=== PATIENT | male | born 1950 | race Caucasian/White ===

== ENCOUNTER 2024-09-29 08:37 | Inpatient (IN) | payer MEDICAID, OTHER ==
[~2024-09-29] VITALS: Ht 170.2 cm; Wt 77.2 kg
[2024-09-29] MEDS: VANCOMYCIN 1000MG/250ML 250 ML IV SCH (09:30)
[2024-09-29 09:35] LABS: DIFFERENTIAL COMMENT 1; HEMATOCRIT. 36.3 % (42.0-52.0); MEAN CORPUSCULAR HEMOGLOBIN 30.7 pg (28.0-32.0); MEAN CORPUSCULAR VOLUME 93.3 fL (80.0-94.0); MEAN PLATELET VOLUME 10.1 fl (7.4-10.4); PLATELET 261 x1000/uL (130-400); RED BLOOD CELL COUNT 3.89 mill/uL (4.7-6.1); RED CELL DISTRIBUTION WIDTH 12.9 % (11.6-14.6); WHITE BLOOD COUNT 16.5 x1000/uL (4.5-11.0)
[2024-09-29 09:42] LABS: CHLORIDE 99 mEq/L (98-107); POTASSIUM 4.2 mEq/L (3.5-5.1); SODIUM 133 mEq/L (136-145)
[2024-09-29 09:43] LABS: CALCIUM 9.5 mg/dL (8.7-10.4); CARBON DIOXIDE 23 mEq/L (21-32)
[2024-09-29 09:44] LABS: INR 1.1; PARTIAL THROMBOPLASTIN TIME 30.3 sec (23.4-31.0); PROTHROMBIN TIME 12.4 sec (9.6-11.0)
[2024-09-29] MEDS ORDERED: NOREPINEPHRINE 8MG/250ML PMX 250 ML IV ONE (09:45)
[2024-09-29 09:48] LABS: CREATININE 1.4 mg/dL (0.6-1.3); GLUCOSE 202 mg/dL (70-105); UREA NITROGEN BLOOD 29 mg/dL (9-23)
[2024-09-29 09:50] LABS: ALANINE AMINOTRANSFERASE 22 IU/L (10-49); ALBUMIN 4.4 g/dL (3.2-4.8); ASPARTATE AMINOTRANSFERASE 85 IU/L (<34); BILIRUBIN DIRECT 0.4 mg/dL (<=3.0); PROTEIN TOTAL 7.1 g/dL (6.0-8.3)
[2024-09-29] MEDS: PIPERACILLIN/TAZO 3.375G/50ML 50 ML IV STA (09:55)
[2024-09-29] MEDS: SODIUM CHLORIDE 0.9% 500 ML IV ONE (09:56)
[2024-09-29 10:03] LABS: TROPONIN I HIGH SENSITIVITY 10707 ng/L (3.0-53)
[2024-09-29] MEDS: NOREPINEPHRINE 8MG/250ML PMX 250 ML IV ONE (10:09)
[2024-09-29] MEDS ORDERED: HEPARIN 5000 UNITS/ML VIAL IV ONE (10:15)
[2024-09-29] MEDS ORDERED: HEPARIN 25,000 UNITS PREMIX 250 ML IV ONE (10:15)
[2024-09-29] MEDS ORDERED: HEPARIN BOLUS PRN aPTT <30 IV (11:00)
[2024-09-29] MEDS: HEPARIN 60 UNITS/KG BOLUS IV SCH (11:35)
[2024-09-29] MEDS: HEPARIN 25,000 UNITS PREMIX 250 ML IV SCH (11:38)
[2024-09-29 11:58] LABS: PLATELET ESTIMATE NORMAL
[2024-09-29 12:00] LABS: TROPONIN I HIGH SENSITIVITY 16179 ng/L (3.0-53)
[2024-09-29 12:48] LABS: BG BASE EXCESS -3.5 mmol/L (-2.0-3.0); BG CARBOXYHEMOGLOBIN 0.3 % (0.5-1.5); BG DEOXYHEMOGLOBIN 6.9 % (0.0-5.0); BG FRACTION INSPIRED OXYGEN 28; BG METHEMOGLOBIN 0.3 % (0.5-1.5); BG OXYGEN SATURATION 93.1 % (94.0-98.0); BG OXYHEMOGLOBIN 92.5 % (94.0-98.0); BG PCO2 31.4 mmHg (35.0-48.0); BG PH 7.422 (7.350-7.450); BG PO2 65.9 mmHg (83.0-108.0); BG TOTAL HEMOGLOBIN 12.1 g/dL (13.5-17.5); BG VENT MODE NASAL CANNULA
[2024-09-29 14:33] LABS: TROPONIN I HIGH SENSITIVITY 21985 ng/L (3.0-53)
[2024-09-29 17:30] LABS: CLARITY URINE CLEAR (CLEAR); COLOR URINE YELLOW (YELLOW); GLUCOSE URINE NEGATIVE (NEGATIVE); KETONES URINE TRACE (NEGATIVE); LEUKOCYTE ESTERASE URINE NEGATIVE (NEGATIVE); NITRITE URINE NEGATIVE (NEGATIVE); OCCULT BLOOD URINE NEGATIVE (NEGATIVE); PROTEIN URINE TRACE (NEGATIVE); SPECIFIC GRAVITY URINE 1.074 (1.005-1.030); UROBILINOGEN URINE 0.2 E.U./dL (0.2-1.0)
[2024-09-29 18:16] LABS: BACTERIA URINE NONE SEEN; RBC URINE NONE SEEN /hpf (0-2); SQUAMOUS EPITHELIAL CELL URINE NONE SEEN /lpf (RARE/1+); WBC URINE NONE SEEN /hpf (0-2)
[2024-09-30] VITALS (59 sets, daily range): BP systolic 87–131; BP diastolic 57–88; PULSE 74–107; RESP 15–34; TEMP 36.114–37.39188; O2SAT 89–99
[2024-09-30] MEDS: IOHEXOL-350 100 ML BOTTLE ONE (00:03)
[2024-09-30] MEDS: LIDOCAINE HCL 1% 10 MG/ML 10ML VIAL ONE (00:03)
[2024-09-30] MEDS: NOREPINEPHRINE 8MG/250ML PMX 250 ML IV PRN (08:56)
[2024-09-30] MEDS ORDERED: HEPARIN 25,000 UNITS PREMIX 250 ML IV SCH (10:15)
[2024-09-30] MEDS: HEPARIN BOLUS PRN aPTT 30-44 IV (11:12)
[2024-09-30] MEDS: DEXT 5%/0.9% NACL 1,000 ML IV SCH (12:19)
[2024-09-30 12:47] LABS: TROPONIN I HIGH SENSITIVITY 72972 ng/L (3.0-53)
[2024-09-30] MEDS ORDERED: LEVO100T9 PO (12:52)
[2024-09-30] MEDS ORDERED: DEXTROSE 50% WATER 50ML SYRINGE IV PRN (13:00)
[2024-09-30] MEDS: ASPIRIN 81MG TABLET PO SCH (13:35)
[2024-09-30] MEDS: PIPERACILLIN/TAZO 3.375G/50ML 50 ML IV SCH (13:36)
[2024-09-30] MEDS: PANTOPRAZOLE SODIUM 40 MG/VIAL IV SCH (13:37)
[2024-09-30] MEDS: INSULIN LISPRO 100 UNITS/ML SUBCUT SCH (16:34)
[2024-09-30] MEDS: BLOOD SUGAR DIAGNOSTIC STRIP TEST SCH (16:34)
[2024-09-30] MEDS: ACETAMINOPHEN 325MG TABLET PO PRN (16:36)
[2024-09-30 17:33] LABS: HEMOGLOBIN. 12.1 g/dL (14.0-18.0); MEAN CORPUSCULAR HEMOGLOBIN 30.6 pg (28.0-32.0); MEAN CORPUSCULAR HGB CONC 32.8 g/dL (31.0-37.0); MEAN CORPUSCULAR VOLUME 93.2 fL (80.0-94.0); MEAN PLATELET VOLUME 11.1 fl (7.4-10.4); PLATELET 204 x1000/uL (130-400); RED BLOOD CELL COUNT 3.97 mill/uL (4.7-6.1); WHITE BLOOD COUNT 15.2 x1000/uL (4.5-11.0)
[2024-09-30 17:36] LABS: DIFFERENTIAL COMMENT 1
[2024-09-30 17:38] LABS: CHLORIDE 101 mEq/L (98-107); POTASSIUM 3.7 mEq/L (3.5-5.1); SODIUM 134 mEq/L (136-145)
[2024-09-30 17:39] LABS: CALCIUM 8.8 mg/dL (8.7-10.4); CARBON DIOXIDE 25 mEq/L (21-32)
[2024-09-30 17:44] LABS: GLUCOSE 147 mg/dL (70-105); TRIGLYCERIDE 106 mg/dL (0-150); UREA NITROGEN BLOOD 32 mg/dL (9-23)
[2024-09-30 17:45] LABS: LDL CHOLESTEROL 40 mg/dL (5-100)
[2024-09-30 17:46] LABS: CHOLESTEROL 91 mg/dL (<200); HDL CHOLESTEROL 29 mg/dL (>55); PHOSPHORUS 2.4 mg/dL (2.5-4.9)
[2024-09-30 17:55] LABS: PLATELET ESTIMATE NORMAL
[2024-09-30] MEDS: ATORVASTATIN CALCIUM 40MG TABLET PO SCH (20:19)
[2024-10-01] VITALS (89 sets, daily range): BP systolic 91–141; BP diastolic 40–81; PULSE 69–107; RESP 15–33; TEMP 36.33624–37.44744; O2SAT 86–99
[2024-10-01 04:31] LABS: HEMOGLOBIN. 10.9 g/dL (14.0-18.0); MEAN CORPUSCULAR HEMOGLOBIN 31.2 pg (28.0-32.0); MEAN CORPUSCULAR HGB CONC 34.1 g/dL (31.0-37.0); MEAN CORPUSCULAR VOLUME 91.5 fL (80.0-94.0); MEAN PLATELET VOLUME 11.1 fl (7.4-10.4); PLATELET 204 x1000/uL (130-400); RED BLOOD CELL COUNT 3.49 mill/uL (4.7-6.1); RED CELL DISTRIBUTION WIDTH 12.7 % (11.6-14.6); WHITE BLOOD COUNT 12.7 x1000/uL (4.5-11.0)
[2024-10-01 04:33] LABS: CHLORIDE 103 mEq/L (98-107); POTASSIUM 3.6 mEq/L (3.5-5.1); SODIUM 135 mEq/L (136-145)
[2024-10-01 04:34] LABS: CALCIUM 8.5 mg/dL (8.7-10.4); CARBON DIOXIDE 25 mEq/L (21-32)
[2024-10-01 04:39] LABS: CREATININE 0.9 mg/dL (0.6-1.3); GLUCOSE 164 mg/dL (70-105); UREA NITROGEN BLOOD 25 mg/dL (9-23)
[2024-10-01 04:41] LABS: PHOSPHORUS 2.2 mg/dL (2.5-4.9)
[2024-10-01 04:45] LABS: DIFFERENTIAL COMMENT 1
[2024-10-01 05:43] LABS: PLATELET ESTIMATE NORMAL
[2024-10-01] MEDS: OSELTAMIVIR 75MG CAPSULE PO SCH (08:59)
[2024-10-01 09:53] LABS: TROPONIN I HIGH SENSITIVITY 31839 ng/L (3.0-53)
[2024-10-01] MEDS ORDERED: LIDOCAINE HCL 1% 20ML VIAL ONE (11:21)
[2024-10-01] MEDS ORDERED: VERAPAMIL HCL 2.5 MG/1 ML 2ML VIAL IV ONE (11:22)
[2024-10-01] MEDS ORDERED: IODIXANOL 320MG/ML 100 ML BOTTLE IV ONE (11:22)
[2024-10-01] MEDS ORDERED: FENTANYL CITRATE/PF 50MCG/ML 2ML VIAL ONE (11:22)
[2024-10-01] MEDS ORDERED: HEPARIN 1000 UNITS/ML 10ML ONE (11:22)
[2024-10-01] MEDS ORDERED: DIPHENHYDRAMINE 50MG/ML VIAL ONE (11:22)
[2024-10-01] MEDS ORDERED: MIDAZOLAM HCL 2 MG/2 ML VIAL ONE (11:22)
[2024-10-01] MEDS ORDERED: ACETAMINOPHEN 325MG TABLET PO PRN (12:45)
[2024-10-01] MEDS ORDERED: ATROPINE SULFATE 1MG/10ML SYR IV PRN (12:45)
[2024-10-01] MEDS: MAGNESIUM 2 G PREMIX 50 ML IV NR (14:12)
[2024-10-01] MEDS ORDERED: NITROGLYCERIN 0.4MG TABLET SL SL PRN (19:30)
[2024-10-01] MEDS: MELATONIN 3MG TABLET PO SCH (20:52)
[2024-10-01] MEDS: EPOETIN ALFA-EPBX 10,000 UNIT/ML VIAL SUBCUT NR (21:18)
[2024-10-02] VITALS (99 sets, daily range): BP systolic 84–144; BP diastolic 32–95; PULSE 63–94; RESP 12–33; TEMP 36.44736–38.3364; O2SAT 92–100
[2024-10-02 06:09] LABS: CARBON DIOXIDE 25 mEq/L (21-32); CHLORIDE 105 mEq/L (98-107); POTASSIUM 3.4 mEq/L (3.5-5.1); SODIUM 137 mEq/L (136-145)
[2024-10-02 06:14] LABS: BASOPHILS % 0.2 % (0.0-2.0); HEMOGLOBIN. 9.9 g/dL (14.0-18.0); LYMPHOCYTES % 11.7 % (20.0-50.0); MEAN CORPUSCULAR HEMOGLOBIN 31.5 pg (28.0-32.0); MEAN CORPUSCULAR HGB CONC 34.3 g/dL (31.0-37.0); MEAN CORPUSCULAR VOLUME 91.9 fL (80.0-94.0); MEAN PLATELET VOLUME 11.2 fl (7.4-10.4); MONOCYTES % 11.2 % (2.0-8.0); NEUTROPHILS % 76.9 % (40.0-76.0); PLATELET 177 x1000/uL (130-400); RED BLOOD CELL COUNT 3.15 mill/uL (4.7-6.1); RED CELL DISTRIBUTION WIDTH 13.2 % (11.6-14.6); WHITE BLOOD COUNT 9.2 x1000/uL (4.5-11.0)
[2024-10-02 06:14] LABS: CREATININE 0.9 mg/dL (0.6-1.3); GLUCOSE 178 mg/dL (70-105)
[2024-10-02 06:15] LABS: UREA NITROGEN BLOOD 18 mg/dL (9-23)
[2024-10-02 06:54] LABS: CLARITY URINE CLEAR (CLEAR); COLOR URINE YELLOW (YELLOW); GLUCOSE URINE NEGATIVE (NEGATIVE); KETONES URINE NEGATIVE (NEGATIVE); LEUKOCYTE ESTERASE URINE NEGATIVE (NEGATIVE); NITRITE URINE NEGATIVE (NEGATIVE); OCCULT BLOOD URINE TRACE (NEGATIVE); PROTEIN URINE 1+ (NEGATIVE); SPECIFIC GRAVITY URINE 1.029 (1.005-1.030)
[2024-10-02 06:57] LABS: BACTERIA URINE FEW; RBC URINE 0-2 /hpf (0-2); SQUAMOUS EPITHELIAL CELL URINE NONE SEEN /lpf (RARE/1+); WBC URINE 0-2 /hpf (0-2); YEAST URINE NONE SEEN
[2024-10-02] MEDS: FUROSEMIDE 20MG/2ML VIAL IVP NR (11:15)
[2024-10-02] MEDS: SODIUM CHLORIDE 0.9% IV NR (12:15)
[2024-10-02] MEDS: POTASSIUM CHLORIDE IV NR (12:15)
[2024-10-02] MEDS: IPRATROPIUM/ALBUTEROL 0.5-3(2.5)MG/3ML NEB HHN PRN (12:21)
[2024-10-02] MEDS: SPIRONOLACTONE 12.5MG TABLET PO SCH (18:03)
[2024-10-02] MEDS: FUROSEMIDE 40MG/4ML VIAL IVP NR (18:03)
[2024-10-02] MEDS: PIPERACILLIN/TAZO 3.375G/100ML IV SCH (22:07)
[2024-10-02 22:13] LABS: CARBON DIOXIDE 25 mEq/L (21-32); CHLORIDE 103 mEq/L (98-107); POTASSIUM 3.5 mEq/L (3.5-5.1); SODIUM 135 mEq/L (136-145)
[2024-10-02 22:14] LABS: CALCIUM 7.9 mg/dL (8.7-10.4)
[2024-10-02 22:19] LABS: CREATININE 0.9 mg/dL (0.6-1.3); GLUCOSE 187 mg/dL (70-105); UREA NITROGEN BLOOD 14 mg/dL (9-23)
[2024-10-02 22:21] LABS: PHOSPHORUS 1.9 mg/dL (2.5-4.9)
[2024-10-02] MEDS: MAGNESIUM 2 G PREMIX 50 ML IV NR (23:37)
[2024-10-03] VITALS (95 sets, daily range): BP systolic 78–143; BP diastolic 30–103; PULSE 65–87; RESP 13–31; TEMP 36.33624–37.28076; O2SAT 94–100
[2024-10-03] MEDS: CALCIUM GLUCONATE 1GM PREMIX 50 ML IV NR (00:23)
[2024-10-03] MEDS: POTASSIUM PHOSPHATE 15 MMOL in DEXT 5% WATER 245 ML IV NR (00:23)
[2024-10-03] MEDS: FUROSEMIDE 40MG/4ML VIAL IVP NR (10:02)
[2024-10-03 10:11] LABS: CHLORIDE 103 mEq/L (98-107); POTASSIUM 3.3 mEq/L (3.5-5.1); SODIUM 136 mEq/L (136-145)
[2024-10-03 10:12] LABS: CARBON DIOXIDE 27 mEq/L (21-32)
[2024-10-03 10:13] LABS: CALCIUM 8.1 mg/dL (8.7-10.4)
[2024-10-03 10:17] LABS: CREATININE 0.7 mg/dL (0.6-1.3); GLUCOSE 158 mg/dL (70-105)
[2024-10-03 10:18] LABS: UREA NITROGEN BLOOD 12 mg/dL (9-23)
[2024-10-03 10:20] LABS: PHOSPHORUS 2.9 mg/dL (2.5-4.9)
[2024-10-03] MEDS: MAGNESIUM 2 G PREMIX 50 ML IV NR (12:49)
[2024-10-03] MEDS: KCL 20MEQ/100ML PREMIX 100 ML IV SCH (14:15)
[2024-10-03] MEDS: KCL 20MEQ/100ML PREMIX 100 ML IV NR (19:03)
[2024-10-03] MEDS: IPRATROPIUM/ALBUTEROL 0.5-3(2.5)MG/3ML NEB HHN SCH (22:27)
[2024-10-04] VITALS (100 sets, daily range): BP systolic 91–133; BP diastolic 31–99; PULSE 61–85; RESP 6–27; TEMP 36.33624–37.16964; O2SAT 94–100
[2024-10-04 06:22] LABS: CALCIUM 8.4 mg/dL (8.7-10.4); CARBON DIOXIDE 28 mEq/L (21-32); CHLORIDE 101 mEq/L (98-107); POTASSIUM 3.4 mEq/L (3.5-5.1); SODIUM 136 mEq/L (136-145)
[2024-10-04 06:24] LABS: BASOPHILS % 0.3 % (0.0-2.0); EOSINOPHILS % 0.4 % (0.0-5.0); HEMATOCRIT. 30.1 % (42.0-52.0); HEMOGLOBIN. 10.1 g/dL (14.0-18.0); MEAN CORPUSCULAR HEMOGLOBIN 31.1 pg (28.0-32.0); MEAN CORPUSCULAR HGB CONC 33.7 g/dL (31.0-37.0); MEAN CORPUSCULAR VOLUME 92.1 fL (80.0-94.0); MEAN PLATELET VOLUME 11.7 fl (7.4-10.4); MONOCYTES % 11.5 % (2.0-8.0); NEUTROPHILS % 75.8 % (40.0-76.0); PLATELET 208 x1000/uL (130-400); RED BLOOD CELL COUNT 3.26 mill/uL (4.7-6.1); RED CELL DISTRIBUTION WIDTH 13.1 % (11.6-14.6); WHITE BLOOD COUNT 12.9 x1000/uL (4.5-11.0)
[2024-10-04 06:28] LABS: CREATININE 0.8 mg/dL (0.6-1.3); GLUCOSE 110 mg/dL (70-105); UREA NITROGEN BLOOD 12 mg/dL (9-23)
[2024-10-04 06:30] LABS: PHOSPHORUS 3.2 mg/dL (2.5-4.9)
[2024-10-04] MEDS: FUROSEMIDE 40MG/4ML VIAL IVP SCH (08:36)
[2024-10-04] MEDS: POTASSIUM CHLORIDE 20MEQ TABLET SR PO NR (09:54)
[2024-10-04] MEDS: MAGNESIUM 1 G PREMIX 100 ML IV NR (09:55)
[2024-10-04] MEDS: KCL 20MEQ/100ML PREMIX 100 ML IV SCH (11:09)
[2024-10-04] MEDS ORDERED: ONDANSETRON HCL 4MG/2ML INJ IV PRN (11:30)
[2024-10-04] MEDS: METOCLOPRAMIDE HCL 10MG/2ML VIAL IV PRN (11:46)
[2024-10-04] MEDS: MAGNESIUM 4 G PREMIX 100 ML IV NR (16:52)
[2024-10-04] MEDS: ASCORBIC ACID 500 MG TABLET PO NR (20:07)
[2024-10-04] MEDS: DOCUSATE SODIUM 100MG CAPSULE PO NR (20:07)
[2024-10-04] MEDS: ALLOPURINOL 300 MG TABLET PO SCH (20:07)
[2024-10-04] MEDS ORDERED: DIPHENHYDRAMINE 25MG CAPSULE PO PRN (21:00)
[2024-10-04] MEDS ORDERED: BISACODYL 10MG SUPP PR PRN (21:00)
[2024-10-04] MEDS: CHLORHEXIDINE GLUCONATE 4% EXTERNAL USE TOP NR (21:06)
[2024-10-05] VITALS (89 sets, daily range): BP systolic 90–133; BP diastolic 38–74; PULSE 61–95; RESP 10–25; TEMP 35.11392–38.83644; O2SAT 86–100
[2024-10-05] MEDS ORDERED: INSULIN REGULAR 100 U/100 ML PREMIX IV NR (05:00)
[2024-10-05] MEDS ORDERED: PAPAVERINE HCL 180MG in SODIUM CHLORIDE 0.9% 24ML IV PRN (05:00)
[2024-10-05] MEDS ORDERED: DOPAMINE 400MG/250ML PREMIX 250 ML IV PRN ×2 (05:00→11:00)
[2024-10-05] MEDS ORDERED: LR with VERAPAMIL, NTG, HEPARIN, SODIUM BICARBONATE (Soln) IV SCH (05:00)
[2024-10-05] MEDS ORDERED: AMINOCAPROIC ACID 5,000 MG in SODIUM CHLORIDE 0.9% 250 ML IV PRN (05:00)
[2024-10-05] MEDS ORDERED: VANCOMYCIN 1G PREMIX 200 ML IV SCH (05:00)
[2024-10-05] MEDS ORDERED: DEL NIDO CARDIOPLEGIA 1,000 ML (PREMIX) IV NR ×2 (05:00)
[2024-10-05] MEDS ORDERED: NICARDIPINE 40MG/200ML PREMIX 200 ML IV PRN (05:00)
[2024-10-05] MEDS ORDERED: NOREPINEPHRINE 8MG/250ML PMX 250 ML IV PRN (05:00)
[2024-10-05] MEDS ORDERED: EPINEPHRINE 5 MG in DEXT 5% WATER 250 ML IV PRN (05:00)
[2024-10-05] MEDS ORDERED: CEFAZOLIN 2GM/100ML 100 ML IV SCH (05:00)
[2024-10-05] MEDS ORDERED: DOBUTAMINE 250 MG/250 ML PREMIX IV PRN (05:00)
[2024-10-05 05:07] LABS: BASOPHILS % 0.3 % (0.0-2.0); EOSINOPHILS % 1.3 % (0.0-5.0); HEMATOCRIT. 31.3 % (42.0-52.0); HEMOGLOBIN. 10.4 g/dL (14.0-18.0); MEAN CORPUSCULAR HEMOGLOBIN 30.7 pg (28.0-32.0); MEAN CORPUSCULAR HGB CONC 33.2 g/dL (31.0-37.0); MEAN CORPUSCULAR VOLUME 92.4 fL (80.0-94.0); MONOCYTES % 13.9 % (2.0-8.0); NEUTROPHILS % 71.5 % (40.0-76.0); PLATELET 249 x1000/uL (130-400); RED BLOOD CELL COUNT 3.39 mill/uL (4.7-6.1); RED CELL DISTRIBUTION WIDTH 13.4 % (11.6-14.6)
[2024-10-05 05:11] LABS: CHLORIDE 100 mEq/L (98-107); POTASSIUM 3.6 mEq/L (3.5-5.1); SODIUM 136 mEq/L (136-145)
[2024-10-05 05:12] LABS: CALCIUM 8.5 mg/dL (8.7-10.4); CARBON DIOXIDE 32 mEq/L (21-32)
[2024-10-05 05:17] LABS: CREATININE 0.8 mg/dL (0.6-1.3); GLUCOSE 118 mg/dL (70-105)
[2024-10-05 05:18] LABS: UREA NITROGEN BLOOD 13 mg/dL (9-23)
[2024-10-05 05:19] LABS: PHOSPHORUS 3.6 mg/dL (2.5-4.9)
[2024-10-05 05:34] LABS: INR 1.1; PARTIAL THROMBOPLASTIN TIME 32.5 sec (23.4-31.0); PROTHROMBIN TIME 12.6 sec (9.6-11.0)
[2024-10-05] MEDS: CHLORHEXIDINE GLUCONATE 4% EXTERNAL USE TOP NR (05:35)
[2024-10-05] MEDS ORDERED: HEPARIN 1000 UNITS/ML 10ML ONE (06:33)
[2024-10-05] MEDS ORDERED: SEVOFLURANE 250 ML LIQUID INH ONE (06:33)
[2024-10-05] MEDS ORDERED: NITROGLYCERIN 50MG PREMIX 250 ML IV ONE (06:33)
[2024-10-05] MEDS ORDERED: THROMBIN (BOVINE) 5000 UNITS/VIAL TOP ONE (06:44)
[2024-10-05] MEDS ORDERED: POLYMYXIN B SULFATE 500000 UNITS/VIAL ONE (06:44)
[2024-10-05] MEDS ORDERED: SKIN ADHESIVE 0.7 GM EA TOP ONE (06:45)
[2024-10-05] MEDS ORDERED: DESMOPRESSIN ACETATE 4MCG/ML AMP ONE (06:47)
[2024-10-05] MEDS ORDERED: VASOPRESSIN 20 UNIT/ML 1ML ONE (06:47)
[2024-10-05] MEDS ORDERED: MIDAZOLAM HCL 2 MG/2 ML VIAL ONE ×5 (07:14→07:15)
[2024-10-05] MEDS ORDERED: FENTANYL CITRATE/PF 50MCG/ML 5ML VIAL ONE (07:14)
[2024-10-05] MEDS ORDERED: HYDROMORPHONE HCL/PF 1MG/ML INJ ONE (07:14)
[2024-10-05] MEDS ORDERED: ROCURONIUM BROMIDE 10MG/ML VIAL 5ML IV ONE (07:15)
[2024-10-05] MEDS ORDERED: PROPOFOL 10MG/ML 100ML 100 ML IV ONE (08:18)
[2024-10-05] MEDS ORDERED: FUROSEMIDE 20MG/2ML VIAL ONE (09:00)
[2024-10-05] MEDS ORDERED: DEXTROSE 50% WATER 50ML SYRINGE IV PRN ×2 (10:15)
[2024-10-05] MEDS ORDERED: KCL 10MEQ/50ML PREMIX 200 ML IV PRN (10:15)
[2024-10-05] MEDS ORDERED: MAGNESIUM 1 G PREMIX 100 ML IV PRN ×2 (10:15→11:00)
[2024-10-05] MEDS ORDERED: CALCIUM CHLORIDE 1GM/10ML SYR IV ONE (10:31)
[2024-10-05] MEDS ORDERED: SODIUM CHLORIDE 0.9% 500 ML IV PRN (11:00)
[2024-10-05] MEDS ORDERED: NOREPINEPHRINE 8 MG in DEXT 5% WATER 242 ML IV SCH (11:00)
[2024-10-05] MEDS ORDERED: CALCIUM CHLORIDE 5,000 MG in DEXT 5% WATER 500 ML IV PRN (11:00)
[2024-10-05] MEDS ORDERED: ALBUMIN HUMAN 12.5G/250ML (5%) IV PRN (11:00)
[2024-10-05] MEDS ORDERED: ONDANSETRON HCL 4MG/2ML INJ IV PRN (11:00)
[2024-10-05] MEDS ORDERED: MAGNESIUM SULFATE 3 GM in DEXT 5% WATER 100 ML IV PRN (11:00)
[2024-10-05] MEDS ORDERED: IPRATROPIUM/ALBUTEROL 0.5-3(2.5)MG/3ML NEB HHN SCH (11:00)
[2024-10-05] MEDS ORDERED: ALBUMIN HUMAN 25GM/100ML (25%) IV PRN (11:00)
[2024-10-05] MEDS ORDERED: MAGNESIUM 2 G PREMIX 50 ML IV PRN (11:00)
[2024-10-05] MEDS ORDERED: CALCIUM CHLORIDE 3,000 MG in DEXT 5% WATER 250 ML IV PRN (11:00)
[2024-10-05] MEDS ORDERED: SUGAMMADEX SODIUM 200MG/2ML VIAL IV ONE (11:01)
[2024-10-05 11:27] LABS: INR 1.2; PROTHROMBIN TIME 13.4 sec (9.6-11.0)
[2024-10-05 11:29] LABS: BASOPHILS % 0.7 % (0.0-2.0); EOSINOPHILS % 1.7 % (0.0-5.0); HEMATOCRIT. 29.1 % (42.0-52.0); HEMOGLOBIN. 9.5 g/dL (14.0-18.0); LYMPHOCYTES % 12.3 % (20.0-50.0); MEAN CORPUSCULAR HEMOGLOBIN 30.5 pg (28.0-32.0); MEAN CORPUSCULAR HGB CONC 32.7 g/dL (31.0-37.0); MEAN CORPUSCULAR VOLUME 93.2 fL (80.0-94.0); MEAN PLATELET VOLUME 11.1 fl (7.4-10.4); MONOCYTES % 6.4 % (2.0-8.0); NEUTROPHILS % 78.9 % (40.0-76.0); PLATELET 184 x1000/uL (130-400); RED BLOOD CELL COUNT 3.12 mill/uL (4.7-6.1); RED CELL DISTRIBUTION WIDTH 13.5 % (11.6-14.6)
[2024-10-05] MEDS ORDERED: NALOXONE HCL 0.4MG/ML VIAL IV PRN (11:30)
[2024-10-05 11:44] LABS: BG BASE EXCESS -0.1 mmol/L (-2.0-3.0); BG CARBOXYHEMOGLOBIN 0.3 % (0.5-1.5); BG DEOXYHEMOGLOBIN 1.1 % (0.0-5.0); BG FRACTION INSPIRED OXYGEN 100; BG METHEMOGLOBIN 0.1 % (0.5-1.5); BG OXYGEN SATURATION 98.9 % (94.0-98.0); BG OXYHEMOGLOBIN 98.5 % (94.0-98.0); BG PCO2 48.9 mmHg (35.0-48.0); BG PH 7.343 (7.350-7.450); BG PO2 167.1 mmHg (83.0-108.0); BG SAMPLE SITE ALINE; BG TOTAL HEMOGLOBIN 9.9 g/dL (13.5-17.5); BG VENT MODE VENT - AC
[2024-10-05] MEDS ORDERED: NOREPINEPHRINE 8MG/250ML PMX 250ML IV PRN (11:45)
[2024-10-05 11:46] LABS: CARBON DIOXIDE 27 mEq/L (21-32); CHLORIDE 103 mEq/L (98-107); POTASSIUM 3.5 mEq/L (3.5-5.1); SODIUM 138 mEq/L (136-145)
[2024-10-05 11:47] LABS: CALCIUM 9.9 mg/dL (8.7-10.4)
[2024-10-05 11:52] LABS: CREATININE 0.8 mg/dL (0.6-1.3); GLUCOSE 198 mg/dL (70-105); UREA NITROGEN BLOOD 12 mg/dL (9-23)
[2024-10-05 11:53] LABS: ALANINE AMINOTRANSFERASE 48 IU/L (10-49); ASPARTATE AMINOTRANSFERASE 49 IU/L (<34)
[2024-10-05 11:54] LABS: ALBUMIN 2.9 g/dL (3.2-4.8); BILIRUBIN TOTAL 0.6 mg/dL (0.1-1.0); PROTEIN TOTAL 5.3 g/dL (6.0-8.3)
[2024-10-05] MEDS: KCL 10MEQ/50ML PREMIX 150 ML IV PRN (12:31)
[2024-10-05] MEDS: BLOOD SUGAR DIAGNOSTIC STRIP TEST SCH (12:32)
[2024-10-05] MEDS: DEXT 5%/0.45% NACL 1000ML 1,000 ML IV SCH (12:33)
[2024-10-05] MEDS: CEFAZOLIN 1000MG PREMIX 50 ML IV SCH (12:33)
[2024-10-05] MEDS: INSULIN REGULAR 100U/100ML PMX 100 ML IV SCH (13:07)
[2024-10-05 13:17] LABS: BG BASE EXCESS -0.8 mmol/L (-2.0-3.0); BG CARBOXYHEMOGLOBIN 0.3 % (0.5-1.5); BG DEOXYHEMOGLOBIN 8.4 % (0.0-5.0); BG FRACTION INSPIRED OXYGEN 70; BG HCO3 ACT 24.8 mmol/L (21.0-28.0); BG METHEMOGLOBIN 0.3 % (0.5-1.5); BG OXYGEN SATURATION 91.5 % (94.0-98.0); BG PH 7.359 (7.350-7.450); BG SAMPLE SITE ALINE; BG TOTAL HEMOGLOBIN 11.3 g/dL (13.5-17.5); BG VENT MODE VENT - AC
[2024-10-05 14:57] LABS: BG BASE EXCESS 5.4 mmol/L (-2.0-3.0); BG CARBOXYHEMOGLOBIN 0.3 % (0.5-1.5); BG DEOXYHEMOGLOBIN 2.5 % (0.0-5.0); BG FRACTION INSPIRED OXYGEN 70; BG HCO3 ACT 30.2 mmol/L (21.0-28.0); BG METHEMOGLOBIN 0.3 % (0.5-1.5); BG OXYGEN SATURATION 97.5 % (94.0-98.0); BG OXYHEMOGLOBIN 96.9 % (94.0-98.0); BG PCO2 44.9 mmHg (35.0-48.0); BG PH 7.445 (7.350-7.450); BG PO2 98.7 mmHg (83.0-108.0); BG SAMPLE SITE ALINE; BG TOTAL HEMOGLOBIN 10.8 g/dL (13.5-17.5); BG VENT MODE VENT - AC
[2024-10-05] MEDS: ASPIRIN 81MG TABLET PO SCH (15:13)
[2024-10-05] MEDS: CLOPIDOGREL 75MG TABLET PO SCH (15:14)
[2024-10-05] MEDS: DOPAMINE 400MG/250ML PREMIX 250 ML IV PRN (15:15)
[2024-10-05] MEDS: ACETAMINOPHEN 325MG TABLET PO PRN (16:11)
[2024-10-05 17:19] LABS: BG BASE EXCESS 6.5 mmol/L (-2.0-3.0); BG CARBOXYHEMOGLOBIN 0.3 % (0.5-1.5); BG DEOXYHEMOGLOBIN 1.2 % (0.0-5.0); BG FRACTION INSPIRED OXYGEN 50; BG HCO3 ACT 30.7 mmol/L (21.0-28.0); BG METHEMOGLOBIN 0.3 % (0.5-1.5); BG OXYGEN SATURATION 98.8 % (94.0-98.0); BG OXYHEMOGLOBIN 98.2 % (94.0-98.0); BG PCO2 42.5 mmHg (35.0-48.0); BG PH 7.476 (7.350-7.450); BG PO2 141.6 mmHg (83.0-108.0); BG SAMPLE SITE ALINE; BG VENT MODE VENT - AC
[2024-10-05 17:28] LABS: BASOPHILS % 0.9 % (0.0-2.0); DIFFERENTIAL COMMENT 0; EOSINOPHILS % 1.2 % (0.0-5.0); HEMATOCRIT. 28.3 % (42.0-52.0); HEMOGLOBIN. 9.5 g/dL (14.0-18.0); LYMPHOCYTES % 12.1 % (20.0-50.0); MEAN CORPUSCULAR HEMOGLOBIN 30.8 pg (28.0-32.0); MEAN CORPUSCULAR HGB CONC 33.6 g/dL (31.0-37.0); MEAN CORPUSCULAR VOLUME 91.6 fL (80.0-94.0); MEAN PLATELET VOLUME 10.4 fl (7.4-10.4); MONOCYTES % 12.2 % (2.0-8.0); NEUTROPHILS % 73.6 % (40.0-76.0); PLATELET 261 x1000/uL (130-400); RED BLOOD CELL COUNT 3.09 mill/uL (4.7-6.1); RED CELL DISTRIBUTION WIDTH 13.6 % (11.6-14.6); WHITE BLOOD COUNT 10.7 x1000/uL (4.5-11.0)
[2024-10-05 17:30] LABS: CHLORIDE 102 mEq/L (98-107); POTASSIUM 4.1 mEq/L (3.5-5.1); SODIUM 138 mEq/L (136-145)
[2024-10-05 17:31] LABS: CALCIUM 8.2 mg/dL (8.7-10.4); CARBON DIOXIDE 31 mEq/L (21-32)
[2024-10-05] MEDS: METOCLOPRAMIDE HCL 10MG/2ML VIAL IV SCH (17:34)
[2024-10-05] MEDS: FUROSEMIDE 100MG/10ML VIAL IVP NR (17:34)
[2024-10-05 17:36] LABS: CREATININE 0.8 mg/dL (0.6-1.3); GLUCOSE 100 mg/dL (70-105); UREA NITROGEN BLOOD 12 mg/dL (9-23)
[2024-10-05 17:38] LABS: PHOSPHORUS 3.4 mg/dL (2.5-4.9)
[2024-10-05] MEDS: MAGNESIUM SULFATE 3 GM in DEXT 5% WATER 100 ML IV PRN (18:26)
[2024-10-05] MEDS: EPINEPHRINE 5 MG in DEXT 5% WATER 245 ML IV PRN (18:28)
[2024-10-05] MEDS: DOCUSATE SODIUM 100MG CAPSULE PO SCH (20:42)
[2024-10-05] MEDS: BACITRACIN 14GM TUBE TOP SCH (20:51)
[2024-10-05] MEDS: METHYLPHENIDATE HCL 5MG TABLET PO SCH (21:48)
[2024-10-05] MEDS: OXYCODONE HCL/ACETAMINOPHEN 5/325MG TABLET PO PRN (22:14)
[2024-10-05 23:00] LABS: BASOPHILS % 0.6 % (0.0-2.0); DIFFERENTIAL COMMENT 1; EOSINOPHILS % 1.2 % (0.0-5.0); HEMATOCRIT. 28.1 % (42.0-52.0); HEMOGLOBIN. 9.7 g/dL (14.0-18.0); LYMPHOCYTES % 11.5 % (20.0-50.0); MEAN CORPUSCULAR HEMOGLOBIN 31.6 pg (28.0-32.0); MEAN CORPUSCULAR HGB CONC 34.6 g/dL (31.0-37.0); MEAN CORPUSCULAR VOLUME 91.4 fL (80.0-94.0); MONOCYTES % 13.4 % (2.0-8.0); NEUTROPHILS % 73.3 % (40.0-76.0); PLATELET 288 x1000/uL (130-400); RED BLOOD CELL COUNT 3.07 mill/uL (4.7-6.1); RED CELL DISTRIBUTION WIDTH 13.6 % (11.6-14.6); WHITE BLOOD COUNT 11.6 x1000/uL (4.5-11.0)
[2024-10-05 23:06] LABS: CHLORIDE 99 mEq/L (98-107); SODIUM 135 mEq/L (136-145)
[2024-10-05 23:07] LABS: CALCIUM 8.3 mg/dL (8.7-10.4); CARBON DIOXIDE 32 mEq/L (21-32)
[2024-10-05 23:12] LABS: CREATININE 0.9 mg/dL (0.6-1.3); GLUCOSE 163 mg/dL (70-105); UREA NITROGEN BLOOD 13 mg/dL (9-23)
[2024-10-05 23:14] LABS: PHOSPHORUS 4.2 mg/dL (2.5-4.9)
[2024-10-05] MEDS: MAGNESIUM 2 G PREMIX 50 ML IV PRN (23:30)
[2024-10-05] MEDS: KCL 10MEQ/50ML PREMIX 100 ML IV PRN (23:30)
[2024-10-06] VITALS (103 sets, daily range): BP systolic 83–128; BP diastolic 39–103; PULSE 79–123; RESP 15–38; TEMP 37.2252–38.11416; O2SAT 93–100
[2024-10-06 05:25] LABS: BASOPHILS % 0.4 % (0.0-2.0); EOSINOPHILS % 1.3 % (0.0-5.0); HEMATOCRIT. 28.1 % (42.0-52.0); HEMOGLOBIN. 9.6 g/dL (14.0-18.0); LYMPHOCYTES % 7.6 % (20.0-50.0); MEAN CORPUSCULAR HEMOGLOBIN 31.1 pg (28.0-32.0); MEAN CORPUSCULAR VOLUME 91.6 fL (80.0-94.0); MEAN PLATELET VOLUME 10.2 fl (7.4-10.4); MONOCYTES % 12.3 % (2.0-8.0); NEUTROPHILS % 78.4 % (40.0-76.0); PLATELET 330 x1000/uL (130-400); RED BLOOD CELL COUNT 3.07 mill/uL (4.7-6.1); RED CELL DISTRIBUTION WIDTH 13.5 % (11.6-14.6); WHITE BLOOD COUNT 11.4 x1000/uL (4.5-11.0)
[2024-10-06 05:27] LABS: CHLORIDE 99 mEq/L (98-107); POTASSIUM 4.2 mEq/L (3.5-5.1); SODIUM 135 mEq/L (136-145)
[2024-10-06 05:28] LABS: CALCIUM 8.2 mg/dL (8.7-10.4); CARBON DIOXIDE 30 mEq/L (21-32)
[2024-10-06 05:33] LABS: CREATININE 0.9 mg/dL (0.6-1.3); GLUCOSE 123 mg/dL (70-105); UREA NITROGEN BLOOD 13 mg/dL (9-23)
[2024-10-06 05:40] LABS: DIFFERENTIAL COMMENT 1
[2024-10-06 06:58] LABS: BG BASE EXCESS 5.1 mmol/L (-2.0-3.0); BG DEOXYHEMOGLOBIN 5.2 % (0.0-5.0); BG HCO3 ACT 28.9 mmol/L (21.0-28.0); BG METHEMOGLOBIN 0.3 % (0.5-1.5); BG OXYGEN SATURATION 94.8 % (94.0-98.0); BG OXYHEMOGLOBIN 94.5 % (94.0-98.0); BG PCO2 39.6 mmHg (35.0-48.0); BG PH 7.481 (7.350-7.450); BG PO2 73.8 mmHg (83.0-108.0); BG SAMPLE SITE ALINE; BG TOTAL HEMOGLOBIN 10.7 g/dL (13.5-17.5); BG VENT MODE VENT - CPAP
[2024-10-06] MEDS: FAMOTIDINE 20MG/2ML VIAL IV SCH (09:20)
[2024-10-06] MEDS ORDERED: DEXTROSE 50% WATER 50ML SYRINGE IV PRN (12:30)
[2024-10-06] MEDS: FUROSEMIDE 100MG/10ML VIAL IVP NR ×2 (12:38→18:25)
[2024-10-06] MEDS: BLOOD SUGAR DIAGNOSTIC STRIP TEST SCH (12:50)
[2024-10-06] MEDS: INSULIN LISPRO 100 UNITS/ML SUBCUT SCH (13:15)
[2024-10-06] MEDS: MORPHINE SULFATE 2 MG/ML INJ (NOT FOR IM USE) IV PRN (14:43)
[2024-10-06] MEDS: MIDODRINE HCL 5MG TABLET PO SCH (15:47)
[2024-10-06] MEDS: TAMSULOSIN HCL 0.4MG SR CAPSULE PO SCH (17:00)
[2024-10-06] MEDS: ALBUMIN HUMAN 12.5G/250ML (5%) IV NR (20:21)
[2024-10-06] MEDS: ALBUMIN HUMAN 25GM/100ML (25%) IV NR (20:52)
[2024-10-07] VITALS (107 sets, daily range): BP systolic 83–125; BP diastolic 45–98; PULSE 86–113; RESP 19–32; TEMP 36.78072–37.72524; O2SAT 66–100
[2024-10-07 01:08] LABS: CHLORIDE 95 mEq/L (98-107); POTASSIUM 3.5 mEq/L (3.5-5.1); SODIUM 129 mEq/L (136-145)
[2024-10-07 01:11] LABS: CALCIUM 8.2 mg/dL (8.7-10.4); CARBON DIOXIDE 29 mEq/L (21-32)
[2024-10-07 01:16] LABS: GLUCOSE 238 mg/dL (70-105); PHOSPHORUS 4.2 mg/dL (2.5-4.9); UREA NITROGEN BLOOD 16 mg/dL (9-23)
[2024-10-07 06:37] LABS: HEMATOCRIT. 24.1 % (42.0-52.0); HEMOGLOBIN. 8.2 g/dL (14.0-18.0); MEAN CORPUSCULAR HEMOGLOBIN 31.1 pg (28.0-32.0); MEAN CORPUSCULAR VOLUME 91.4 fL (80.0-94.0); MEAN PLATELET VOLUME 9.6 fl (7.4-10.4); PLATELET 347 x1000/uL (130-400); RED BLOOD CELL COUNT 2.64 mill/uL (4.7-6.1); RED CELL DISTRIBUTION WIDTH 13.7 % (11.6-14.6); WHITE BLOOD COUNT 13.8 x1000/uL (4.5-11.0)
[2024-10-07 06:40] LABS: CHLORIDE 94 mEq/L (98-107); SODIUM 129 mEq/L (136-145)
[2024-10-07 06:41] LABS: CALCIUM 8.3 mg/dL (8.7-10.4); CARBON DIOXIDE 29 mEq/L (21-32)
[2024-10-07 06:46] LABS: CREATININE 0.9 mg/dL (0.6-1.3); GLUCOSE 251 mg/dL (70-105); UREA NITROGEN BLOOD 15 mg/dL (9-23)
[2024-10-07 06:48] LABS: PHOSPHORUS 3.7 mg/dL (2.5-4.9)
[2024-10-07 07:01] LABS: DIFFERENTIAL COMMENT 1
[2024-10-07 09:56] LABS: PLATELET ESTIMATE NORMAL
[2024-10-07] MEDS: ALBUMIN HUMAN 12.5G/250ML (5%) IV NR (10:08)
[2024-10-07] MEDS: MAGNESIUM 4 G PREMIX 100 ML IV NR (10:49)
[2024-10-07] MEDS: CALCIUM GLUCONATE 3,000 MG in DEXT 5% WATER 70 ML IV ONE (11:06)
[2024-10-07] MEDS: MIDODRINE HCL 5MG TABLET PO SCH ×2 (11:25→13:39)
[2024-10-07 12:30] LABS: BG BASE EXCESS 2.9 mmol/L (-2.0-3.0); BG CARBOXYHEMOGLOBIN 0.5 % (0.5-1.5); BG DEOXYHEMOGLOBIN 15.3 % (0.0-5.0); BG HCO3 ACT 26.6 mmol/L (21.0-28.0); BG METHEMOGLOBIN 0.3 % (0.5-1.5); BG OXYGEN SATURATION 84.6 % (94.0-98.0); BG OXYHEMOGLOBIN 83.9 % (94.0-98.0); BG PCO2 37.6 mmHg (35.0-48.0); BG PH 7.468 (7.350-7.450); BG PO2 50.5 mmHg (83.0-108.0); BG SAMPLE SITE ALINE; BG TOTAL HEMOGLOBIN 9.9 g/dL (13.5-17.5); BG VENT MODE ROOM AIR
[2024-10-07] MEDS: SODIUM CHLORIDE 0.45% 1,000 ML IV ONE (14:34)
[2024-10-07 15:17] LABS: BG BASE EXCESS 1.5 mmol/L (-2.0-3.0); BG CARBOXYHEMOGLOBIN 0.3 % (0.5-1.5); BG DEOXYHEMOGLOBIN 10.5 % (0.0-5.0); BG HCO3 ACT 25.4 mmol/L (21.0-28.0); BG METHEMOGLOBIN 0.3 % (0.5-1.5); BG OXYGEN SATURATION 89.4 % (94.0-98.0); BG OXYHEMOGLOBIN 88.9 % (94.0-98.0); BG PCO2 36.9 mmHg (35.0-48.0); BG PH 7.455 (7.350-7.450); BG PO2 59.8 mmHg (83.0-108.0); BG SAMPLE SITE ALINE; BG TOTAL HEMOGLOBIN 9.2 g/dL (13.5-17.5); BG VENT MODE NASAL CANNULA
[2024-10-07] MEDS: FUROSEMIDE 40MG/4ML VIAL IVP NR (16:37)
[2024-10-08] VITALS (105 sets, daily range): BP systolic 71–117; BP diastolic 42–69; PULSE 75–97; RESP 15–30; TEMP 36.50292–37.39188; O2SAT 85–99
[2024-10-08] MEDS: IPRATROPIUM/ALBUTEROL 0.5-3(2.5)MG/3ML NEB HHN SCH (03:08)
[2024-10-08 06:25] LABS: BASOPHILS % 0.1 % (0.0-2.0); EOSINOPHILS % 0.9 % (0.0-5.0); HEMATOCRIT. 24.8 % (42.0-52.0); HEMOGLOBIN. 8.4 g/dL (14.0-18.0); LYMPHOCYTES % 7.9 % (20.0-50.0); MEAN CORPUSCULAR HEMOGLOBIN 30.9 pg (28.0-32.0); MEAN CORPUSCULAR HGB CONC 33.7 g/dL (31.0-37.0); MEAN CORPUSCULAR VOLUME 91.7 fL (80.0-94.0); MEAN PLATELET VOLUME 9.5 fl (7.4-10.4); MONOCYTES % 7.8 % (2.0-8.0); NEUTROPHILS % 83.3 % (40.0-76.0); PLATELET 394 x1000/uL (130-400); RED BLOOD CELL COUNT 2.71 mill/uL (4.7-6.1); RED CELL DISTRIBUTION WIDTH 13.6 % (11.6-14.6)
[2024-10-08 06:31] LABS: CHLORIDE 95 mEq/L (98-107); POTASSIUM 3.9 mEq/L (3.5-5.1); SODIUM 130 mEq/L (136-145)
[2024-10-08 06:32] LABS: CARBON DIOXIDE 28 mEq/L (21-32)
[2024-10-08 06:33] LABS: CALCIUM 8.3 mg/dL (8.7-10.4)
[2024-10-08 06:37] LABS: CREATININE 0.8 mg/dL (0.6-1.3); GLUCOSE 130 mg/dL (70-105)
[2024-10-08 06:38] LABS: UREA NITROGEN BLOOD 12 mg/dL (9-23)
[2024-10-08 06:40] LABS: PHOSPHORUS 3.4 mg/dL (2.5-4.9)
[2024-10-08 09:13] LABS: CARBON DIOXIDE 30 mEq/L (21-32); CHLORIDE 95 mEq/L (98-107); POTASSIUM 4.1 mEq/L (3.5-5.1); SODIUM 130 mEq/L (136-145)
[2024-10-08 09:14] LABS: CALCIUM 8.5 mg/dL (8.7-10.4)
[2024-10-08 09:18] LABS: CREATININE 0.8 mg/dL (0.6-1.3)
[2024-10-08 09:19] LABS: GLUCOSE 141 mg/dL (70-105); UREA NITROGEN BLOOD 13 mg/dL (9-23)
[2024-10-08 09:21] LABS: PHOSPHORUS 3.4 mg/dL (2.5-4.9)
[2024-10-08 09:28] LABS: HEMATOCRIT. 26.1 % (42.0-52.0); HEMOGLOBIN. 8.8 g/dL (14.0-18.0); MEAN CORPUSCULAR HEMOGLOBIN 30.9 pg (28.0-32.0); MEAN CORPUSCULAR HGB CONC 33.7 g/dL (31.0-37.0); MEAN CORPUSCULAR VOLUME 91.7 fL (80.0-94.0); MEAN PLATELET VOLUME 9.6 fl (7.4-10.4); PLATELET 442 x1000/uL (130-400); RED BLOOD CELL COUNT 2.85 mill/uL (4.7-6.1); RED CELL DISTRIBUTION WIDTH 13.8 % (11.6-14.6); WHITE BLOOD COUNT 12.6 x1000/uL (4.5-11.0)
[2024-10-08 09:29] LABS: DIFFERENTIAL COMMENT 1
[2024-10-08] MEDS ORDERED: NON FORMULARY MED PO SCH (10:45)
[2024-10-08 12:51] LABS: PLATELET ESTIMATE INCREASED
[2024-10-08] MEDS: METHYLPHENIDATE HCL 5MG TABLET PO SCH (13:14)
[2024-10-08] MEDS: AMANTADINE 100MG CAPSULE PO SCH (13:23)
[2024-10-08] MEDS: MIDODRINE HCL 5MG TABLET PO SCH (14:33)
[2024-10-08] MEDS: FUROSEMIDE 40MG/4ML VIAL IVP NR (14:33)
[2024-10-08] MEDS: MAGNESIUM 2 G PREMIX 50 ML IV NR (14:34)
[2024-10-08 16:14] LABS: HEMATOCRIT 26.1 % (42.0-52.0); HEMOGLOBIN 8.5 g/dL (14.0-18.0); MEAN CORPUSCULAR HEMOGLOBIN 30.1 pg (28.0-32.0); MEAN CORPUSCULAR HGB CONC 32.7 g/dL (31.0-37.0); MEAN CORPUSCULAR VOLUME 92.1 fL (80.0-94.0); PLATELET 474 x1000/uL (130-400); RED BLOOD CELL COUNT 2.83 mill/uL (4.7-6.1); WHITE BLOOD COUNT 11.9 x1000/uL (4.5-11.0)
[2024-10-08 16:22] LABS: CARBON DIOXIDE 27 mEq/L (21-32); CHLORIDE 93 mEq/L (98-107); POTASSIUM 3.9 mEq/L (3.5-5.1); SODIUM 126 mEq/L (136-145)
[2024-10-08 16:23] LABS: CALCIUM 8.5 mg/dL (8.7-10.4)
[2024-10-08 16:28] LABS: CREATININE 0.9 mg/dL (0.6-1.3); GLUCOSE 282 mg/dL (70-105); UREA NITROGEN BLOOD 13 mg/dL (9-23)
[2024-10-08 23:22] LABS: CHLORIDE 97 mEq/L (98-107); POTASSIUM 4.1 mEq/L (3.5-5.1); SODIUM 133 mEq/L (136-145)
[2024-10-08 23:23] LABS: CALCIUM 8.6 mg/dL (8.7-10.4); CARBON DIOXIDE 29 mEq/L (21-32)
[2024-10-08 23:28] LABS: CREATININE 0.8 mg/dL (0.6-1.3); UREA NITROGEN BLOOD 15 mg/dL (9-23)
[2024-10-08 23:38] LABS: GLUCOSE 110 mg/dL (70-105)
[2024-10-09] VITALS (92 sets, daily range): BP systolic 83–123; BP diastolic 33–75; PULSE 69–95; RESP 14–32; TEMP 36.00288–37.16964; O2SAT 91–100
[2024-10-09] MEDS: MELATONIN 3MG TABLET PO SCH (02:49)
[2024-10-09 06:30] LABS: CHLORIDE 98 mEq/L (98-107); POTASSIUM 4.1 mEq/L (3.5-5.1); SODIUM 135 mEq/L (136-145)
[2024-10-09 06:31] LABS: CALCIUM 8.6 mg/dL (8.7-10.4); CARBON DIOXIDE 30 mEq/L (21-32)
[2024-10-09 06:37] LABS: CREATININE 0.8 mg/dL (0.6-1.3); GLUCOSE 133 mg/dL (70-105); UREA NITROGEN BLOOD 14 mg/dL (9-23)
[2024-10-09 08:34] LABS: BASOPHILS % 0.3 % (0.0-2.0); DIFFERENTIAL COMMENT 0; EOSINOPHILS % 0.8 % (0.0-5.0); HEMATOCRIT. 26.5 % (42.0-52.0); LYMPHOCYTES % 8.7 % (20.0-50.0); MEAN CORPUSCULAR HEMOGLOBIN 31.1 pg (28.0-32.0); MEAN CORPUSCULAR HGB CONC 33.8 g/dL (31.0-37.0); MEAN CORPUSCULAR VOLUME 91.8 fL (80.0-94.0); MEAN PLATELET VOLUME 9.4 fl (7.4-10.4); MONOCYTES % 9.7 % (2.0-8.0); NEUTROPHILS % 80.5 % (40.0-76.0); PLATELET 531 x1000/uL (130-400); RED BLOOD CELL COUNT 2.89 mill/uL (4.7-6.1); RED CELL DISTRIBUTION WIDTH 13.7 % (11.6-14.6); WHITE BLOOD COUNT 11.2 x1000/uL (4.5-11.0)
[2024-10-09 09:02] LABS: BG BASE EXCESS 4.4 mmol/L (-2.0-3.0); BG CARBOXYHEMOGLOBIN 0.9 % (0.5-1.5); BG DEOXYHEMOGLOBIN 3.6 % (0.0-5.0); BG FRACTION INSPIRED OXYGEN 100; BG METHEMOGLOBIN 0.1 % (0.5-1.5); BG OXYGEN SATURATION 96.4 % (94.0-98.0); BG OXYHEMOGLOBIN 95.4 % (94.0-98.0); BG PCO2 37.9 mmHg (35.0-48.0); BG PH 7.487 (7.350-7.450); BG PO2 83.6 mmHg (83.0-108.0); BG SAMPLE SITE LEFT RADIAL; BG TOTAL HEMOGLOBIN 8.9 g/dL (13.5-17.5); BG VENT MODE MASK - NRB
[2024-10-09] MEDS: BUMETANIDE 2.5MG/10ML VIAL IV NR (09:22)
[2024-10-09] MEDS: METOLAZONE 10MG TABLET PO NR (09:25)
[2024-10-10] VITALS (101 sets, daily range): BP systolic 85–143; BP diastolic 40–81; PULSE 67–97; RESP 15–29; TEMP 35.89176–37.16964; O2SAT 91–100
[2024-10-10 06:39] LABS: CHLORIDE 98 mEq/L (98-107); POTASSIUM 3.5 mEq/L (3.5-5.1); SODIUM 136 mEq/L (136-145)
[2024-10-10 06:40] LABS: CALCIUM 9.2 mg/dL (8.7-10.4); CARBON DIOXIDE 31 mEq/L (21-32)
[2024-10-10 06:46] LABS: GLUCOSE 139 mg/dL (70-105); UREA NITROGEN BLOOD 15 mg/dL (9-23)
[2024-10-10 08:14] LABS: BASOPHILS % 0.4 % (0.0-2.0); DIFFERENTIAL COMMENT 0; EOSINOPHILS % 1.2 % (0.0-5.0); HEMOGLOBIN. 9.9 g/dL (14.0-18.0); LYMPHOCYTES % 12.6 % (20.0-50.0); MEAN CORPUSCULAR HGB CONC 34.1 g/dL (31.0-37.0); MEAN CORPUSCULAR VOLUME 90.9 fL (80.0-94.0); MEAN PLATELET VOLUME 8.9 fl (7.4-10.4); MONOCYTES % 8.9 % (2.0-8.0); NEUTROPHILS % 76.9 % (40.0-76.0); PLATELET 718 x1000/uL (130-400); RED BLOOD CELL COUNT 3.19 mill/uL (4.7-6.1); RED CELL DISTRIBUTION WIDTH 14.1 % (11.6-14.6); WHITE BLOOD COUNT 13.1 x1000/uL (4.5-11.0)
[2024-10-10] MEDS: METOLAZONE 5MG TABLET PO NR (08:56)
[2024-10-10] MEDS: CALCIUM GLUCONATE 3,000 MG in DEXT 5% WATER 220 ML IV SCH (08:56)
[2024-10-10] MEDS: BUMETANIDE 2.5MG/10ML VIAL IV NR (10:20)
[2024-10-10] MEDS: ACETAMINOPHEN 325MG TABLET PO PRN (11:24)
[2024-10-11] VITALS (33 sets, daily range): BP systolic 70–117; BP diastolic 33–66; PULSE 64–83; RESP 13–24; TEMP 36.61404–37.05852; O2SAT 95–100
[2024-10-11 06:26] LABS: CARBON DIOXIDE 29 mEq/L (21-32); CHLORIDE 99 mEq/L (98-107); POTASSIUM 3.4 mEq/L (3.5-5.1); SODIUM 136 mEq/L (136-145)
[2024-10-11 06:27] LABS: CALCIUM 9.2 mg/dL (8.7-10.4)
[2024-10-11 06:30] LABS: GLUCOSE 120 mg/dL (70-105)
[2024-10-11 06:31] LABS: HEMATOCRIT 25.6 % (42.0-52.0); HEMOGLOBIN 8.5 g/dL (14.0-18.0); MEAN CORPUSCULAR HEMOGLOBIN 30.3 pg (28.0-32.0); MEAN CORPUSCULAR HGB CONC 33.1 g/dL (31.0-37.0); MEAN CORPUSCULAR VOLUME 91.3 fL (80.0-94.0); PLATELET 741 x1000/uL (130-400); RED CELL DISTRIBUTION WIDTH 14.2 % (11.6-14.6); WHITE BLOOD COUNT 11.5 x1000/uL (4.5-11.0)
[2024-10-11 06:32] LABS: UREA NITROGEN BLOOD 15 mg/dL (9-23)
[2024-10-11] MEDS: BUMETANIDE 2.5MG/10ML VIAL IV NR (07:00)
[2024-10-11] MEDS: POTASSIUM CHLORIDE 40 MEQ in DEXT 5% WATER 230 ML IV NR (09:46)
[2024-10-12] VITALS: BP 108/60; PULSE 63; RESP 16; TEMP 36.83628; O2SAT 100
[2024-10-12 04:00] VITALS: BP 96/57; PULSE 63; RESP 21; TEMP 36.72516; O2SAT 99
[2024-10-12 08:00] VITALS: BP 94/55; PULSE 74; RESP 16; TEMP 36.50292; O2SAT 96
[2024-10-12 12:00] VITALS: BP 114/63; PULSE 69; RESP 19; TEMP 36.50292; O2SAT 96
[2024-10-12 12:51] LABS: BASOPHILS % 0.5 % (0.0-2.0); DIFFERENTIAL COMMENT 0; EOSINOPHILS % 2.6 % (0.0-5.0); HEMATOCRIT. 29.8 % (42.0-52.0); HEMOGLOBIN. 9.7 g/dL (14.0-18.0); LYMPHOCYTES % 17.1 % (20.0-50.0); MEAN CORPUSCULAR HEMOGLOBIN 30.1 pg (28.0-32.0); MEAN CORPUSCULAR HGB CONC 32.7 g/dL (31.0-37.0); MEAN CORPUSCULAR VOLUME 91.9 fL (80.0-94.0); MEAN PLATELET VOLUME 8.6 fl (7.4-10.4); NEUTROPHILS % 71.8 % (40.0-76.0); PLATELET 896 x1000/uL (130-400); RED BLOOD CELL COUNT 3.24 mill/uL (4.7-6.1); RED CELL DISTRIBUTION WIDTH 14.2 % (11.6-14.6); WHITE BLOOD COUNT 11.6 x1000/uL (4.5-11.0)
[2024-10-12 12:54] LABS: CHLORIDE 99 mEq/L (98-107); POTASSIUM 3.4 mEq/L (3.5-5.1); SODIUM 135 mEq/L (136-145)
[2024-10-12 12:55] LABS: CARBON DIOXIDE 26 mEq/L (21-32)
[2024-10-12 13:00] LABS: CREATININE 1.2 mg/dL (0.6-1.3); UREA NITROGEN BLOOD 16 mg/dL (9-23)
[2024-10-12 16:00] VITALS: BP 103/53; PULSE 63; RESP 15; TEMP 36.61404; O2SAT 100
[2024-10-12 19:42] VITALS: BP 101/59; PULSE 67; RESP 23; TEMP 36.9474; O2SAT 98
[2024-10-13] VITALS: BP 105/61; PULSE 65; RESP 19; TEMP 36.89184; O2SAT 98
[2024-10-13 04:00] VITALS: BP 106/66; PULSE 71; RESP 20; TEMP 36.72516; O2SAT 98
[2024-10-13 08:00] VITALS: BP 100/64; PULSE 67; RESP 18; TEMP 36.55848; O2SAT 98
[2024-10-13 08:17] LABS: POTASSIUM 3.3 mEq/L (3.5-5.1)
[2024-10-13 08:18] LABS: CALCIUM 9.1 mg/dL (8.7-10.4)
[2024-10-13 08:23] LABS: CREATININE 1.3 mg/dL (0.6-1.3)
[2024-10-13] MEDS ORDERED: MIDO5TAB4 PO (10:48)
[2024-10-13] MEDS ORDERED: LIP40 PO (10:48)
[2024-10-13] MEDS ORDERED: BO1 TP (10:48)
[2024-10-13] MEDS ORDERED: FURO40TA5 MT ×2 (10:48→11:03)
[2024-10-13] MEDS ORDERED: CLOP-31 PO (10:48)
[2024-10-13] MEDS ORDERED: ASPI-1160 PO (10:48)
[2024-10-13] MEDS ORDERED: MAGNESIUM 2 G PREMIX 50 ML IV ONE (11:00)
[2024-10-13] MEDS ORDERED: POTA-204 MT (11:03)
[2024-10-13] MEDS: MAGNESIUM 2 G PREMIX 50 ML IV NR (11:49)
[2024-10-13] MEDS: FUROSEMIDE 40MG/4ML VIAL IVP SCH (11:49)
[2024-10-13] MEDS: KCL 20MEQ/100ML PREMIX 100 ML IV ONE (11:50)
[2024-10-13] MEDS: POTASSIUM CHLORIDE 20MEQ TABLET SR PO SCH (11:50)
[2024-10-13 12:00] VITALS: BP 97/76; PULSE 66; RESP 18; TEMP 36.6696; TEMP 36.66960; O2SAT 100
[2024-10-13 13:10] VITALS: BP 104/65; PULSE 72; TEMP 98; O2SAT 99
== END 2024-10-13 17:00 | disposition home health service (06) | DRG 165 ==
LOC: ER 08:45 → EDBEDREQ 10:07 → EDBEDREQSVC 10:07 → EDBEDREQ 12:00 → MICUSO 09-30 08:11 → MICUNO 10-01 13:25 → CVICU 10-03 11:23 → 3WST 10-11 17:55
PROVIDERS: ADMIT Internal Medicine; ATTEND Internal Medicine
PROC: 02HV33Z Insertion of Infusion Device into Superior Vena Cava, Percutaneous Approach (ICD-10-PCS; 2024-09-29)
PROC: B548ZZA Ultrasonography of Superior Vena Cava, Guidance (ICD-10-PCS; 2024-09-29)
PROC: 5A02210 Assistance with Cardiac Output using Balloon Pump, Continuous (ICD-10-PCS; 2024-10-01)
PROC: 4A023N7 Measurement of Cardiac Sampling and Pressure, Left Heart, Percutaneous Approach (ICD-10-PCS; 2024-10-01)
PROC: B211YZZ Fluoroscopy of Multiple Coronary Arteries using Other Contrast (ICD-10-PCS; 2024-10-01)
PROC: B41FYZZ Fluoroscopy of Right Lower Extremity Arteries using Other Contrast (ICD-10-PCS; 2024-10-01)
PROC: B41CYZZ Fluoroscopy of Pelvic Arteries using Other Contrast (ICD-10-PCS; 2024-10-01)
PROC: 021209W Bypass Coronary Artery, Three Arteries from Aorta with Autologous Venous Tissue, Open Approach (ICD-10-PCS; principal; 2024-10-05)
PROC: 06BP4ZZ Excision of Right Saphenous Vein, Percutaneous Endoscopic Approach (ICD-10-PCS; 2024-10-05)
PROC: 02100Z9 Bypass Coronary Artery, One Artery from Left Internal Mammary, Open Approach (ICD-10-PCS; 2024-10-05)
DX: I21.4 Non-ST elevation (NSTEMI) myocardial infarction (principal); A41.89 Other specified sepsis; J96.01 Acute respiratory failure with hypoxia; J10.00 Influenza due to other identified influenza virus with unspecified type of pneumonia; R65.21 Severe sepsis with septic shock; R57.0 Cardiogenic shock; J18.9 Pneumonia, unspecified organism; E87.20 Acidosis, unspecified; I50.82 Biventricular heart failure; I11.0 Hypertensive heart disease with heart failure; G93.40 Encephalopathy, unspecified; I50.23 Acute on chronic systolic (congestive) heart failure; Z20.822 Contact with and (suspected) exposure to COVID-19; I27.81 Cor pulmonale (chronic); E11.9 Type 2 diabetes mellitus without complications; D64.9 Anemia, unspecified; I25.10 Atherosclerotic heart disease of native coronary artery without angina pectoris; I38 Endocarditis, valve unspecified; I42.0 Dilated cardiomyopathy; J98.11 Atelectasis; N17.9 Acute kidney failure, unspecified; E78.00 Pure hypercholesterolemia, unspecified; I49.3 Ventricular premature depolarization; I48.91 Unspecified atrial fibrillation; I70.0 Atherosclerosis of aorta; I25.2 Old myocardial infarction; Z79.82 Long term (current) use of aspirin; Z79.899 Other long term (current) drug therapy; Z87.01 Personal history of pneumonia (recurrent)
CPT/HCPCS: 31720; 33967; 36415; 36573; 36600; 71045; 71275; 74174; 80048; 80051; 80053; 80061; 80076; 81003; 82010; 82375; 82565; 82805; 82962; 83036; 83605; 83735; 83880; 84100; 84145; 84484; 84520; 85025; 85027; 85347; 85379; 85384; 86850; 86900; 86920; 87070; 87426; 87804; 93005; 93306; 93454; 93880; 94002; 94003; 94070; 94640; 94664; 94760; 97110; 97116; 97162; 97167; 97530; 97535; 98960; 99291; A6261; C1725; C1729; C1751; C1758; C1769; C1887; C1893; J0610; J0690; J0885; J1171; J1200; J1265; J1644; J1815; J1940; J2250; J2270; J2470; J2543; J2597; J2704; J2765; J3010; J3370; J3475; J3480; J3490; J7040; J7042; J7060; L3908; P9041; P9047; Q9967